=== PATIENT | female | born 1930 | race Caucasian/White ===

== ENCOUNTER 2017-01-16 12:07 | Inpatient (IN) | payer MEDICARE, OTHER ==
[~2017-01-16] VITALS: Ht 170.2 cm; Wt 88.7 kg
[~2017-01-16 12:07] MED LIST: ASPIR 8181 MG PO; CLARITIN10 M2 PO; DIABETA 5 MG TAB5 MG PO; ELIQUIS 5 MG TAB5 MG PO; HYDRALAZINE HCL50 MG PO; JANUVIA 100 MG100 MG PO; LANTUS100 UNIT/1 SC; LANTUS100 UNIT/1 SQ; LISINOPRIL40 MG PO; NEXIUM40 MG PO; NORVASC 5 MG TAB5 MG PO; REFRESH CLASSI1 EACH OP; SIMVASTATIN10 MG PO; TENORMIN 50 MG50 MG PO; TOPROL XL50 MG PO; ZETIA10 MG PO
[2017-01-16 13:13] LABS: HEMOGLOBIN 14.2 gm/dl (12.3-15.3); RED BLOOD COUNT 4.81 M/UL (4.00-5.10); WHITE BLOOD COUNT 5.4 K/UL (4.5-11.0)
[2017-01-16] MEDS ORDERED: TRANDATE 200 M200 MG PO (21:11)
[2017-01-16] MEDS ORDERED: LASIX20 MG PO (21:12)
[2017-01-16] MEDS ORDERED: NORVASC 5 MG TAB5 MG PO (21:12)
[2017-01-17 06:17] LABS: HEMOGLOBIN 13.7 gm/dl (12.3-15.3); RED BLOOD COUNT 4.75 M/UL (4.00-5.10)
[2017-01-17 06:25] LABS: WHITE BLOOD COUNT 3.3 K/UL (4.5-11.0)
[2017-01-17 06:31] LABS: BUN/CREATININE RATIO 14 (0-10)
[2017-01-18] MEDS ORDERED: AZITHROMYCIN250 MG PO (19:45)
[2017-01-18] MEDS ORDERED: TYLENOL 325MG325 MG PO (19:50)
[2017-01-18] MEDS ORDERED: ARTIFICIAL TEAR15 ML OP (19:51)
[2017-01-18] MEDS ORDERED: COMBIVENT0.074 GM/I INH (19:52)
[2017-01-18] MEDS ORDERED: FLOVENT 440.088 GM/I INH (19:52)
[2017-01-18] MEDS ORDERED: KLONOPIN TAB 00.5 MG PO (19:53)
== END 2017-01-18 20:32 | disposition home or self-care (01) | DRG 190 ==
LOC: ER1 12:07 → ZEROF 17:52 → M/S 17:52
PROVIDERS: Emergency Medicine; ADMIT Family Medicine
DX: J44.1 Chronic obstructive pulmonary disease with (acute) exacerbation (principal); J18.9 Pneumonia, unspecified organism; E87.1 Hypo-osmolality and hyponatremia; I13.0 Hypertensive heart and chronic kidney disease with heart failure and stage 1 through stage 4 chronic kidney disease, or unspecified chronic kidney disease; J44.0 Chronic obstructive pulmonary disease with (acute) lower respiratory infection; R09.02 Hypoxemia; Z63.4 Disappearance and death of family member; F43.29 Adjustment disorder with other symptoms; D69.6 Thrombocytopenia, unspecified; E11.65 Type 2 diabetes mellitus with hyperglycemia; E11.22 Type 2 diabetes mellitus with diabetic chronic kidney disease; N18.9 Chronic kidney disease, unspecified; J32.9 Chronic sinusitis, unspecified; I50.9 Heart failure, unspecified; Z87.891 Personal history of nicotine dependence; Z88.5 Allergy status to narcotic agent; Z88.8 Allergy status to other drugs, medicaments and biological substances; Z91.048 Other nonmedicinal substance allergy status; Z79.84 Long term (current) use of oral hypoglycemic drugs; Z79.4 Long term (current) use of insulin; Z79.899 Other long term (current) drug therapy; Z82.49 Family history of ischemic heart disease and other diseases of the circulatory system; Z80.49 Family history of malignant neoplasm of other genital organs
CPT/HCPCS: 36415; 36600; 71010; 71250; 80048; 80053; 81001; 82550; 82553; 82803; 82962; 83605; 83874; 83880; 84484; 85025; 87040; 93005; 94640; 94664; 96374; 99285; J0456; J0696; J2405; J2930; J7030; J7050; Q0162

== ENCOUNTER 2020-10-25 13:36 | Emergency (ER) | payer MEDICARE, OTHER ==
[~2020-10-25 13:36] MED LIST changes: +ARTIFICIAL TEAR15 ML OP; +AZITHROMYCIN250 MG PO; +COMBIVENT0.074 GM/I INH; +FLOVENT 440.088 GM/I INH; +KLONOPIN TAB 00.5 MG PO; +LASIX20 MG PO; +TRANDATE 200 M200 MG PO; +TYLENOL 325MG325 MG PO
== END 2020-10-25 15:49 | disposition home or self-care (01) ==
LOC: ER1 13:36
DX: S80.02XA Contusion of left knee, initial encounter (principal); M17.12 Unilateral primary osteoarthritis, left knee; I87.8 Other specified disorders of veins; I48.91 Unspecified atrial fibrillation; I11.0 Hypertensive heart disease with heart failure; I50.9 Heart failure, unspecified; E11.9 Type 2 diabetes mellitus without complications; W01.0XXA Fall on same level from slipping, tripping and stumbling without subsequent striking against object, initial encounter; Z88.5 Allergy status to narcotic agent
CPT/HCPCS: 73564; 96372; 99283; J1885

== ENCOUNTER → 2021-02-23 | Outpatient (CLI) | payer MEDICARE, OTHER | LOC: KOH-I 11:48 | DX: M54.5 Low back pain (principal); M25.552 Pain in left hip; M47.816 Spondylosis without myelopathy or radiculopathy, lumbar region | CPT/HCPCS: 72110; 73502 ==

== ENCOUNTER → 2022-04-14 | Outpatient (CLI) | payer MEDICARE, OTHER | LOC: LAB 16:50 | PROVIDERS: Family Medicine | DX: M25.562 Pain in left knee (principal); E11.22 Type 2 diabetes mellitus with diabetic chronic kidney disease; N18.30 Chronic kidney disease, stage 3 unspecified; M79.89 Other specified soft tissue disorders | CPT/HCPCS: 36415; 73564; 80053; 82570; 83735; 84100; 84156 ==